=== PATIENT | male | born 1955 | race Caucasian/White ===

== ENCOUNTER 2018-07-01 17:28 | Emergency (ER) | payer SELFPAY ==
[~2018-07-01] VITALS: Ht 170.2 cm; Wt 100.0 kg
--- NOTE | 2018-07-01 17:59 | ERD ---
ER Documentation Chief Complaint Chief Complaint Fall HPI The patient is a 63-year-old male, presenting to the ER because he had a mechanical fall on the street, has alcohol odor. 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 Head: Atraumatic. Eyes: Normal Conjunctiva. ENT: Normal External Ears, Nose and Mouth. Nasal laceration 1 cm with no active bleeding, no septal hematoma Neck: Full range of motion. No meningismus. Resp: Clear to auscultation bilaterally. Cardio: Regular rate and rhythm. Abd: Soft, non distended, normal bowel sounds, non tender. Skin: No petechiae or rashes. Back: No midline or flank tenderness. Ext: No cyanosis, or edema. Neur: Awake and alert. No focal deficit. Limited exam due to his condition Psych: Unable to perform due to his condition. Results 24 hrs Current Medications Medications Dose Sig/Sarah Start Time Status Last (Trade) Ordered Route PRN Stop Time Admin Dose Reason Admin Lorazepam 2 mg ONCE ONCE 07/01/18 DC 07/01/18 (Ativan) IM 18:00 18:08 07/01/18 18:01 Haloperidol 5 mg ONCE ONCE 07/01/18 DC 07/01/18 (Haldol) IM 18:00 18:08 07/01/18 18:01 50 mg ONCE ONCE 07/01/18 DC 07/01/18 Diphenhydrami IM 18:00 18:08 ne HCl 07/01/18 18:01 (Benadryl) Diphtheria/ 0.5 ml ONCE ONCE 07/01/18 DC 07/01/18 Tetanus/Acell IM* 19:00 19:25 Pertussis 07/01/18 19:01 (Adacel) Procedures/MDM [place] [address] Radiology Main Line: [phone] DIAGNOSTIC IMAGING REPORT Patient: FREDIS BILL : 1955 Age: 63 Sex: M MR #: [id number] DOS: 07/01/18 175 Ordering MD: MIGUEL CERRATO MD Location: E/R Room/Bed: PROCEDURE: CT Brain without contrast. CLINICAL INDICATION: Altered mental status. TECHNIQUE: A CT of the brain without contrast was performed utilizing axial sections from the skull base through the vertex. One or more the following does reduction techniques were utilized: Automated exposure control, adjustment of the mA/ or kV according to patient's size, or use of iterative reconstruction technique. Total exam CTDIvol is 39.25 MGy and DLP is 713.51 mGy-cm. DICOM images are available. COMPARISON: None available. FINDINGS: The ventricles and sulci are mildly prominent indicative of volume loss. There is no intracranial hemorrhage, mass effect or midline shift. No abnormal intra- axial or extra-axial fluid collections are seen. The miradna/white matter differentiation is preserved. There are mild foci of hypoattenuation in the white matter, which are nonspecific in etiology but likely reflect chronic small vessel ischemic changes. There are mild intracranial vascular calcifications consistent with atherosclerosis. The visualized paranasal sinuses demonstrate mild to moderate polypoid mucosal thickening in the inferior left maxillary sinus is noted. The mastoid air cells are essentially clear. IMPRESSION: 1. No acute intracranial hemorrhage, transcortical infarction or mass effect. 2. Mild intracranial atherosclerosis and chronic small vessel ischemic changes. 3. Mild generalized cerebral volume loss. RPTAT: HFN .Jessica Manzanares MD, MD Date Time Electronically viewed and signed by .Jessica Manzanares MD, MD on 07/01/2018 19:56 .N/ CC: MIGUEL CERRATO MD [id number] [place] [address] Radiology Main Line: [phone] DIAGNOSTIC IMAGING REPORT Patient: FREDIS BILL : 1955 Age: 63 Sex: M MR #: [id number] DOS: 07/01/18 1759 Ordering MD: MIGUEL CERRATO MD Location: E/R Room/Bed: PROCEDURE: CT Cervical Spine without contrast. CLINICAL INDICATION: Altered level of consciousness. Pain. TECHNIQUE: A CT of the cervical spine was performed on a multidetector CT scanner utilizing thin section axial images from the skull base through the thoracic inlet. Sagittal and coronal reformatted images were made. The CTDIvol is 22 mGy and the DLP is the 590 mGycm. DICOM images are available. One or more of the following dose reduction techniques were utilized: 1.) Automated exposure control 2.) Adjustment of the mA +/- kV according to patient's size 3.) Use of iterative reconstruction technique. COMPARISON: No prior studies are available for comparison. FINDINGS: There is straightened lordosis of the upper and mid cervical spine compatible with muscular spasm or sprain. No step-off or prevertebral soft tissue swelling is present. Vertebral bodies have normal height. No fracture is visualized and no lytic or blastic lesions are noted. There is moderate narrowing of C5-C6 disc space with posterior ridging. The other disc heights are maintained. No disc herniation is present and there is no significant central or foraminal stenosis. The pedicles and posterior elements are intact. There is mild left C3-C4 facet arthropathy. IMPRESSION: Straightened cervical lordosis compatible with muscular spasm or sprain. C5-C6 degenerative disc disease with posterior ridging. Note disc herniation. No significant central or foraminal stenosis. .Raffi Navarrete MD, MD Date Time Electronically viewed and signed by .Raffi Navarrete MD, on 07/01/2018 20:11 .A/ CC: MIGUEL CERRATO MD [id number] [place] [address] Radiology Main Line: [phone] DIAGNOSTIC IMAGING REPORT Patient: FREDIS BILL : 1955 Age: 63 Sex: M MR #: [id number] DOS: 07/01/18 441 Ordering MD: MIGUEL CERRATO MD Location: E/R Room/Bed: PROCEDURE: CT scan facial bones CLINICAL INDICATION: Altered mental status. Pain. TECHNIQUE: CT scan of the face was performed on the a high-resolution multidetector CT scanner with multiple contiguous axial images obtained through the face. Coronal and sagittal reformatted images were obtained from the axial source images. One or more the following does reduction techniques were utilized: Automated exposure control, adjustment of the mA/ or kV according to patient's size, or use of iterative reconstruction technique. Exam CTDI = 39.25 mGy and the DLP = 713.51 mGy-cm. DICOM images are available. COMPARISON: None available. FINDINGS: No acute fracture or dislocation is seen. No significant soft tissue swelling is noted. The orbital globes are unremarkable. Rightward nasal septal deviation with nasal spur are noted.. Paranasal sinuses demonstrate mild to moderate poly poid mucosal thickening in the inferior left maxillary sinus as well as mild scattered mucosal thickening. Left frontal scalp and left supraorbital soft tissue swelling are noted without underlying fracture. IMPRESSION: 1. Left frontal scalp and left supraorbital soft tissue swelling are noted without underlying fracture. 2. No acute facial fracture or dislocation. RPTAT: HFN .Jessica Manzanares MD, MD Date Time Electronically viewed and signed by .Jessica Manzanares MD, on 07/01/2018 19:59 .N/ CC: MIGUEL CERRATO MD [id number] [place] [address] Radiology Main Line: [phone] DIAGNOSTIC IMAGING REPORT Patient: FREDIS BILL : 1955 Age: 63 Sex: M MR #: [id number] DOS: 07/01/18 0000 Ordering MD: MIGUEL CERRATO MD Location: E/R Room/Bed: PROCEDURE: XR Chest. CLINICAL INDICATION: Due to mental status. TECHNIQUE: Single frontal view of the chest was obtained COMPARISON: None FINDINGS: The heart and mediastinum are within normal limits. No discrete focal consolidation. There is no pleural effusion or pneumothorax. IMPRESSION: No acute cardiopulmonary process. RPTAT: [facility] Physician Tom Date Time Electronically viewed and signed by rosemary Reich Physician on 07/01/2018 19:00 rV/ CC: MIGUEL CERRATO MD [id number] Procedure: The nasal bridge 1 cm laceration was cleaned thoroughly with normal saline and closed with Dermabond without any difficulty MEDICAL MAKING DECISION: The patient is a 63-year-old male, presenting with acute alcohol abuse, acute nasal laceration. He was treated with Tdap He was very agitated in the ER, did not respond to counseling, he was therefore treated with Benadryl 50 mg IM, Haldol 5 mg IM, Ativan 2 mg IM with good response. He has been sleeping well in the emergency department The differential diagnoses considered include but are not limited to subarachnoid hemorrhage, occult trauma, CVA, meningitis, encephalitis, hypertension, tension, migraine, cluster, narcotic withdrawal, cervical spine disease. Departure Diagnosis: Primary Impression: Alcohol abuse Additional Impression: Nasal laceration Condition: Good Comments He was able to ambulate independently without any difficulty and he was discharged back to his family I discussed the findings with the patient. I advised the patient to follow-up with the primary physician or the ER for wound check in about 2 days, sooner if needed and return if any concern. Disclaimer: Inadvertent spelling and grammatical errors are likely due to EHR/dictation software use and do not reflect on the overall quality of patient care. Also, please note that the electronic time recorded on this note does not necessarily reflect the actual time of the patient encounter. MIGUEL CERRATO MD Jul 01, 2018 17:59
[2018-07-01] MEDS ORDERED: HALOPERIDOL 5 MG INJ IM ONE (18:00)
[2018-07-01] MEDS ORDERED: LORAZEPAM 2 MG INJ IM ONE (18:00)
[2018-07-01] MEDS ORDERED: DIPHENHYDRAMINE 50 MG INJ IM ONE (18:00)
[2018-07-01 18:14] VITALS: Ht 170.2 cm; Wt 100.0 kg
[2018-07-01] MEDS ORDERED: DIPHTH/TET/ACEL PERTUSS (ADULT) 0.5 ML VIAL IM* ONE (19:00)
[2018-07-01 21:58] VITALS: BP 90/68; PULSE 96; RESP 18
== END 2018-07-01 21:58 | disposition home or self-care (01) ==
LOC: E/R 17:28
DX: S01.21XA Laceration without foreign body of nose, initial encounter (principal); F10.10 Alcohol abuse, uncomplicated; R41.82 Altered mental status, unspecified; W18.30XA Fall on same level, unspecified, initial encounter; Y92.9 Unspecified place or not applicable; Z23 Encounter for immunization
CPT/HCPCS: 12011; 70450; 70486; 71045; 72125; 90471; 90715; 96372; 99285; J1200; J1630; J2060